=== PATIENT | female | born 1975 | race Two or more races ===

== ENCOUNTER 2024-10-20 20:50 | Emergency (ER) | payer MEDICAID, OTHER ==
[~2024-10-20] VITALS: Ht 160 cm; Wt 78.8 kg
--- NOTE | 2024-10-20 21:33 | ED.PDOC ---
Musculoskeletal HPI Comments 49 y.o female presents to the ED for a chief complaint of bilateral leg swelling associated with right foot pain that presented 2 weeks ago. Patient reports pain is localized closer to her 5th toe, states no recent injuries but when she walks she noticed the pain is more tender. Patient denies any water pill use, has a m edical history of DM and take Metformin which she has been compliant with taking. Patient states her blood sugar is usually well controlled. Time Seen by MD: 21:26 Reviewed Notes: Nurses Notes, Medications, Allergies Allergies: Coded Allergies: NO KNOWN ALLERGIES (Unverified , 10/20/24) Home Meds Active Scripts Acetaminophen (Acetaminophen) 500 Mg Tab, 500 MG PO Q4HP PRN, #30 TAB Prov:SRINIVASA FELIX PAC 10/21/24 Ibuprofen (Ibuprofen) 600 Mg Tab, 1 TAB PO Q6HP PRN, #20 TAB Prov:SRINIVASA FELIX PAC 10/21/24 Information Source: Patient Mode of Arrival: Ambulatory Location: Right, Bilateral Extremity Location: Foot (right ), Leg Timing: Weeks (2) Severity: Moderate Able to Move Extremity: Yes Bear Weight: Fully Pain: Moderate Mechanism: None Circumstances: Spontaneous Onset of Symptoms: Spontaneous Symptoms: Swelling, Pain Associated signs and symptoms: Swelling, Leg pain Past Medical History PAST MEDICAL HISTORY: DM Surgical History: Denies all surgeries [employer] History: No Pertinent [employer] History Family History Family History: Reviewed,noncontributory to illness Social History Smoker: Non-Smoker Alcohol: Denies ETOH Use Drugs: Denies Drug Use Lives In: Home Constitutional: denies: chills, diaphoresis, fatigue, fever, malaise, sweats, weakness, others EENTM: denies: blurred vision, double vision, ear bleeding, ear discharge, ear drainage, ear pain, ear ringing, eye pain, eye redness, hearing loss, mouth pain, mouth swelling, nasal discharge, nose bleeding, nose congestion, nose pain , photophobia, tearing, throat pain, throat swelling, voice changes, others Respiratory: denies: cough, hemoptysis, orthopnea, SOB at rest, shortness of breath, SOB with excertion, stridor, wheezing, others Cardiovascular: denies: chest pain, dizzy spells, diaphoresis, Dyspnea on exertion, edema, irregular heart beat, left arm pain, lightheadedness, palpitations, PND, syncope, others Gastrointestinal: denies: abdomen distended, abdominal pain, blood streaked bowels, constipated, diarrhea, dysphagia, difficulty swallowing, hematemesis, melena, nausea, poor appetite, poor fluid intake, rectal bleeding, rectal pain, vomiting, others Genitourinary: denies: abnormal vagina bleeding, burning, dyspareunia, dysuria, flank pain, frequency, hematuria, incontinence, pain, , vagina discharge, urgency, others Neurological: denies: dizziness, fainting, headache, left sided numbness, left sided weakness, numbness, paresthesia, pre-existing deficit, right sided numbness, right sided weakness, seizure, speech problems, tingling, tremors, weakness, others Musculoskeletal: reports: others (right foot pain with bilateral lower extremity swelling); denies: back pain, gout, joint pain, joint swelling, muscle pain, muscle stiffness, neck pain Integumetry: denies: bruises, change in color, change in hair/nails, dryness, laceration, lesions, lumps, rash, wounds, others Allergic/Immunocompromised: denies: Difficulty Healing, Frequent Infections, Hives, Itching, others Hematologic/Lymphatic: denies: anemia, blood clots, easy bleeding, easy bruising, swollen glands, others Endocrine: denies: excessive hunger, excessive sweating, excessive thirst, excessive urination, flushing, intolerance to cold, intolerance to heat, unexplained weight gain, unexplained weight loss, others Psychiatric: denies: anxiety, bipolar disorder, depression, hopeless, panic disorder, schizophrenia, sleepless, suicidal, others All Other Systems: Reviewed and Negative Physical Exam General Appearance: Moderate Distress (Moderate distress due to bilateral lower extremity swelling on right foot concerns.), Normal HEENT: Normal ENT Inspection, Pharynx Normal, TMs Normal Neck: Full Range of Motion, Non-Tender, Normal, Normal Inspection Respiratory: Chest Non-Tender, Lungs Clear, No Accessory Muscle Use, No Respira tory Distress, Normal Breath Sounds Cardiovascular: No Edema, No JVD, No Murmur, No Gallop, Normal Peripheral Pulses, Regular Rate/Rhythm Breast Exam: Deferred Gastrointestinal: No Organomegaly, Non Tender, No Pulsatile Mass, Normal Bowel Sounds, Soft Genitalia: Deferred Pelvic: Deferred Rectal: Deferred Extremities: Other (Bilateral lower extremities reveals some possible mild edema. No definitive pitting noted. No signs of infection. Lateral aspect of the right foot reveals tenderness to palpation from the toe through the 5th metatarsal region. No crepitus noted. No edema or ecchymosis.) Musculoskeletal : Location: Right Extremity Location: Foot Apperance: Swelling, Tenderness Neurologic: Alert, No Motor Deficits, Normal Affect, Normal Mood, No Sensory D eficits Cerebellar Function: Normal Reflexes: Normal Skin: Dry, Normal Color, Warm Lymphatic: No Adenopathy Was a procedure done? Was a procedure done?: No Differential Diagnosis EXT Differential Diagnosis: Cellulitis, Fracture, Sprain, Contusion, Strain, Arthritis X-Ray, Labs, Meds, VS Vital Signs Date Time Temp Pulse Resp B/P (MAP) Pulse Ox O2 Delivery O2 Flow Rate FiO2 10/20/24 23:45 88 16 97 Room Air* 0 21 10/20/24 23:45 97.8 88 16 124/72 (89) 97 97.8 10/20/24 20:50 98.0 97 16 130/79 (96) 97 Lab Test 10/21/24 00:05 10/20/24 21:35 10/20/24 21:31 Range/Units POC Glucose 228 H 318 H 70-106 mg/dl White Blood Count 7.4 4.4-10.8 10^3/uL Red Blood Count 4.45 4.0-5.20 10^6/uL Hemoglobin 13.4 12.2-16.2 g/dL Hematocrit 38.9 36.0-46.0 % Mean Corpuscular Volume 87.5 80.0-100.0 fL Mean Corpuscular Hemoglobin 30.0 28.0-32.0 pg Mean Corpuscular Hemoglobin Concent 34.3 32.0-36.0 g/dL Red Cell Distribution Width 13.1 11.8-14.3 % Platelet Count 287 140-450 10^3/uL Mean Platelet Volume 8.8 6.9-10.8 fL Neutrophils (%) (Auto) 58.3 37.0-80.0 % Lymphocytes (%) (Auto) 31.6 10.0-50.0 % Monocytes (%) (Auto) 6.6 0.0-12.0 % Eosinophils (%) (Auto) 3.1 0.0-7.0 % Basophils (%) (Auto) 0.4 0.0-2.0 % Neutrophils # (Auto) 4.3 1.6-8.6 10 ^3/uL Lymphocytes # (Auto) 2.4 0.4-5.4 10 ^3/uL Monocytes # (Auto) 0.5 0-1.3 10 ^3/uL Eosinophils # (Auto) 0.2 0-0.8 10 ^3/uL Basophils # (Auto) 0 0-0.2 10 ^3/uL Nucleated Red Blood Cells 0.0 % Sodium Level 136 136-145 mmol/L Potassium Level 3.9 3.5-5.1 mmol/L Chloride Level 103 98-107 mmol/L Carbon Dioxide Level 26 20-31 mmol/L Anion Gap 7 5-15 Blood Urea Nitrogen 14 9-23 mg/dL Creatinine 0.97 0.550-1.02 mg/dL Glomerular Filtration Rate Calc 72 >90 mL/min BUN/Creatinine Ratio 14.4 10.0-20.0 Serum Glucose 339 H 74-106 mg/dL Calcium Level 10.4 8.7-10.4 mg/dL Total Bilirubin 0.3 0.2-1.0 mg/dL Aspartate Amino Transferase (AST) 9 L 13-40 U/L Alanine Aminotransferase (ALT) 16 7-40 U/L Alkaline Phosphatase 90 46-116 U/L Troponin I High Sensitivity < 3 L </=34 ng/L B-Type Natriuretic Peptide 3.87 0-100 pg/mL Total Protein 7.5 5.7-8.2 g/dL Albumin 4.1 3.2-4.8 g/dL Lipase 66 H 12-53 U/L Current Medications Medications (Trade) Dose Ordered Sig/Palomo Route Start Time Stop Time Status Last Admin Acetaminophen/ Hydrocodone Bitart ([place] 10/325MG Tab) 1 tab ONCE ONCE PO 10/20/24 21:30 10/20/24 21:33 DC 10/21/24 00:15 Sodium Chloride 1,000 ml @ 1,000 mls/hr Q1H ONCE IV 10/20/24 21:45 10/20/24 22:44 DC 10/20/24 23:40 X-Ray, Labs, Meds, VS Comment All studies performed the ED were evaluated by me personally. Laboratories revealed a hyperglycemia with a blood sugar above 330 as well as an elevated lipase. Patient denies any abdominal pain concerns at today's visit. CT of abd omen and pelvis was unremarkable for any acute pancreatitis. Ancillary findings of some nodularity in the breast was noted and patient has been advised to follow up with primary care provider for possible mammogram. Patient denies any history of pancreatitis. Doppler studies of bilateral lower extremities were unremarkable for any DVT formation and x-ray of right foot was unremarkable for any fractures or interosseous concerns. Patient appears to have a foot contusion possible peripheral edema. Advised patient utilize pain medication as needed and follow up with primary care provider for continued evaluation of recurrent complaints as well as her elevated lipase and breast concerns. Time of 1ST Reevaluation: 00:25 Reevaluation 1ST: Improved Consultation: PCP Patient Education/Counseling: Diagnosis, Treatment, Prognosis Family Education/Counseling: Diagnosis, Treatment, No Family Present Departure 1 Departure Time of Disposition: 00:26 Impression: Primary Impression: Peripheral edema Additional Impression: Foot pain Disposition: HOME / SELF CARE / HOMELESS Condition: Stable Additional Instructions: Advised pain medication as needed and additionally, advised patient to follow up with her primary care provider for discussions related to what appears to be poorly controlled hypertension, elevated lipase concerns and any concerns the patient has a about peripheral edema as well as some left breast nodularity that was noted on imaging studies today.. e-Prescriptions Acetaminophen (Acetaminophen) 500 Mg Tab 500 MG PO Q4HP PRN, #30 TAB Prov: SRINIVASA FELIX PAC 10/21/24 Ibuprofen (Ibuprofen) 600 Mg Tab 1 TAB PO Q6HP PRN, #20 TAB Prov: SRINIVASA FELIX PAC 10/21/24 Discharged With: Self, Relative Critical Care Note Critical Care Time?: No Stability Stability form required: No I personally scribed for SRINIVASA FELIX PAC ([email or web address]) on 10/20/24 at 21:33. Electronically submitted by Payton Macario ([facility]). SRINIVASA FELIX PAC Oct 20, 2024 21:33
--- NOTE | 2024-10-20 21:57 | DVH ---
CLINICAL INDICATION: Pain throughout 5th metatarsal TECHNIQUE: 3 radiographic views of the right foot were obtained. Comparison: None FINDINGS/IMPRESSION: There is no evidence of acute fracture or dislocation. The visualized joint space is well maintained. The alignment is anatomical. There is no radiopaque foreign body.
[2024-10-20 21:59] LABS: Basophils # (auto) 0 10 ^3/uL (0-0.2); Basophils % (auto) 0.4 % (0.0-2.0); Eosinophils # (auto) 0.2 10 ^3/uL (0-0.8); Eosinophils % (auto) 3.1 % (0.0-7.0); Hematocrit 38.9 % (36.0-46.0); Hemoglobin 13.4 g/dL (12.2-16.2); Lymphocytes # (auto) 2.4 10 ^3/uL (0.4-5.4); Lymphocytes % (auto) 31.6 % (10.0-50.0); Mean Corpuscular Hgb Conc. 34.3 g/dL (32.0-36.0); Mean Corpuscular Volume 87.5 fL (80.0-100.0); Monocytes # (auto) 0.5 10 ^3/uL (0-1.3); Monocytes % (auto) 6.6 % (0.0-12.0); Neutrophils # (auto) 4.3 10 ^3/uL (1.6-8.6); Neutrophils % (auto) 58.3 % (37.0-80.0); Platelet Count (auto) 287 10^3/uL (140-450); Red Blood Cells 4.45 10^6/uL (4.0-5.20); Red Cell Distribution Width 13.1 % (11.8-14.3); White Blood Cell 7.4 10^3/uL (4.4-10.8)
[2024-10-20 22:09] LABS: Alanine Aminotransferase 16 U/L (7-40); Albumin 4.1 g/dL (3.2-4.8); Alkaline Phosphatase 90 U/L (46-116); Anion Gap 7 (5-15); BUN/Creatinine Ratio 14.4 (10.0-20.0); Blood Urea Nitrogen 14 mg/dL (9-23); Carbon Dioxide 26 mmol/L (20-31); Chloride 103 mmol/L (98-107); Potassium 3.9 mmol/L (3.5-5.1); Sodium 136 mmol/L (136-145); Total Protein 7.5 g/dL (5.7-8.2)
[2024-10-20 22:11] LABS: Aspartate Aminotransferase 9 U/L (13-40); Bilirubin, Total 0.3 mg/dL (0.2-1.0); Calcium 10.4 mg/dL (8.7-10.4); Glucose 339 mg/dL (74-106); Lipase 66 U/L (12-53)
[2024-10-20] MEDS: SODIUM CHLORIDE 0.9% 1,000 ML IV ONE (23:40)
[2024-10-20 23:45] VITALS: BP 124/72; PULSE 88; RESP 16; TEMP 97.8; O2SAT 97
[2024-10-21] MEDS: INSULIN LISPRO (HUMAN) 100 UNITS/ML ML SC ONE (00:10)
[2024-10-21] MEDS: HYDROcodone-ACET 10/325MG TAB PO ONE (00:15)
[2024-10-21] MEDS ORDERED: ACET500T58 PO (00:27)
[2024-10-21] MEDS ORDERED: IBUP-1454 PO (00:27)
--- NOTE | 2024-10-21 01:16 | DVH ---
CT SCAN ABDOMEN AND PELVIS WITHOUT CONTRAST CLINICAL HISTORY: Elevated lipase TECHNIQUE: Helical axial images are obtained from the lung bases through the pelvis without oral cont rast. No intravenous contrast was administered. Coronal and sagittal reformatted images were generate d from thin section reconstructions. One or more of the following radiation dose reduction techniques were used for this examination: automated exposure control, adjustment of the mA and/or kV according to patient size, use of iterative reconstruction technique. COMPARISON: None FINDINGS: LOWER THORAX: Imaged lung bases are grossly clear. Patchy, nodularity in the imaged left inferior, outer breast. ABDOMEN AND PELVIS: Evaluation of visceral and vascular structures is limited due to lack of contrast administration. As visualized, the unenhanced liver, spleen, pancreas and adrenals appear grossly unremarkable. No ap preciable peripancreatic fluid or fat stranding at this time. The gallbladder is surgically absent. No appreciable biliary ductal dilatation. No hydroureteronephrosis or sizable, obstructing urinary tract calculi identified. No evidence of abdominal aortic aneurysm. No evidence of bowel obstruction. Normal caliber appendix. No free intraperitoneal air or fluid ident ified. Fat containing umbilical hernia. Distended urinary bladder. No sizable bladder calculus. No destructive osseous lesions identified. IMPRESSION: No CT evidence of pancreatitis at this time. Please note that this does not exclude a clinical diagno sis. Small fat containing umbilical hernia. Patchy, nodularity in the imaged left inferior, outer breast. Recommend clinical correlation and mamm ographic evaluation. HS:Y
--- NOTE | 2024-10-21 01:22 | DVH ---
Examination: BLDVT CLINICAL INDICATION: DVT rule out. COMPARISON: None. TECHNIQUE: Using real-time ultrasonic imaging and color Doppler the deep venous system of the left l ower extremity was studied carefully. FINDINGS: Examination of the left common femoral vein, deep femoral vein, proximal, middle and dista l segments of the left superficial femoral vein, popliteal vein and left posterior tibial vein reveal normal phasicity, full compression and augmentation. No thrombus is visualized in the images submit neymar. IMPRESSION: No evidence of deep or superficial venous thrombosis in left lower extremity could be id entified. Electronically Signed 10/21/2024 01:21 Andrew Bangura
== END 2024-10-21 01:40 | disposition home or self-care (01) ==
LOC: ER 20:50
DX: R60.0 Localized edema (principal); M79.671 Pain in right foot; E11.9 Type 2 diabetes mellitus without complications
CPT/HCPCS: 36415; 73630; 74176; 80053; 82962; 83690; 83880; 84484; 85025; 93970; 96360; 96361; 99284; J7030